=== PATIENT | female | born 1975 | race Caucasian/White ===

== ENCOUNTER → 2023-03-08 | Outpatient (CLI) | payer BC ==
--- NOTE | 2023-03-11 08:03 | MM ---
Reason for Exam: Screening (asymptomatic). Last mammogram was performed 1 year(s) and 3 month(s) ago. Patient History: Menarche at age 14. Patient has no children. Last menstrual period: 12/31/2022 Risk Values: Liberty 5 year model risk: 0.9%. NCI Lifetime model risk: 10.5%. Prior Study Comparison: 06/27/2020 Bilateral Screening Mammogram, [facility]. 11/25/2021 Bilateral Screening Mammogram, [facility]. Tissue Density: The breast tissue is heterogeneously dense. This may lower the sensitivity of mammography. Findings: Analyzed By CAD. Asymmetric density upper right breast 10 cm from the nipple. Additional views are recommended. Overall Assessment: Incomplete: need additional imaging evaluation, BI-RAD 0 Management: Diagnostic Mammogram of the right breast. . Patient should continue monthly self-breast exams. A clinical breast exam by your physician is recommended on an annual basis. This exam should not preclude additional follow-up of suspicious palpable abnormalities. Note on Liberty scores and lifetime risk: 1. A Liberty score greater than 3% is considered moderate risk. If this is the case, consider specialist referral to assess eligibility for a risk reducing agent. 2. If overall lifetime risk for the development of breast cancer is 20% or higher, the patient may qualify for future screening with alternating mammogram and breast MRI. Electronically signed and approved by: Carmine Dominique M.D. Radiologis
== END | disposition home or self-care (01) ==
LOC: RADMAMWWP 07:07
PROVIDERS: ATTEND Obstetrics & Gynecology
DX: Z12.31 Encounter for screening mammogram for malignant neoplasm of breast (principal)
CPT/HCPCS: 77063; 77067

== ENCOUNTER → 2023-03-17 | Outpatient (CLI) | payer BC ==
--- NOTE | 2023-03-17 16:18 | MM ---
Reason for Exam: Additional evaluation requested from abnormal screening. Last screening mammogram was performed less than 1 month ago. Patient History: Menarche at age 14. Patient has no children. 2017, Incisional Biopsy on the Right side. Risk Values: Liberty 5 year model risk: 1.4%. NCI Lifetime model risk: 12.5%. Prior Study Comparison: 06/27/2020 Bilateral Screening Mammogram, [facility]. 11/25/2021 Bilateral Screening Mammogram, [facility]. 03/08/2023 Bilateral MG 3D screening mammo w/cad, [facility]. Tissue Density: Right: The breast tissue is heterogeneously dense. This may lower the sensitivity of mammography. Analyzed By CAD. Overall Assessment: Probably benign, BI-RAD 3 Management: Diagnostic Mammogram of the right breast in 3 months. Electronically signed and approved by: Dago Tay D.O. Radiologis
== END | disposition home or self-care (01) ==
LOC: RADMAMWWP 13:34
PROVIDERS: ATTEND Obstetrics & Gynecology
DX: R92.8 Other abnormal and inconclusive findings on diagnostic imaging of breast (principal)
CPT/HCPCS: 77061; 77065

== ENCOUNTER → 2024-12-22 | Outpatient (CLI) | payer BC ==
--- NOTE | 2024-12-22 08:06 | MM ---
Reason for Exam: Screening (asymptomatic). Last mammogram was performed 1 year(s) and 9 month(s) ago. Patient History: Menarche at age 14. Patient has no children. 2017, Incisional Biopsy on the Right side. Risk Values: Liberty 5 year model risk: 1.3%. NCI Lifetime model risk: 12.1%. Prior Study Comparison: 03/08/2023 Bilateral MG 3D screening mammo w/cad, [facility]. 03/17/2023 Right MG 3D work up w/cad RT, [facility]. 06/21/2023 Right MG 3D diag mammo w/cad RT, [facility]. Tissue Density: The breasts are heterogeneously dense, which may obscure small masses. Findings: Analyzed By CAD. Loosely grouped calcifications in the right breast and upper outer quadrant left breast.. Recommend magnification views. Overall Assessment: Incomplete: need additional imaging evaluation, BI-RAD 0 Management: Special View Mammogram of both breasts. . Patient should continue monthly self-breast exams. A clinical breast exam by your physician is recommended on an annual basis. This exam should not preclude additional follow-up of suspicious palpable abnormalities. Note on Liberty scores and lifetime risk: 1. A Liberty score greater than 3% is considered moderate risk. If this is the case, consider specialist referral to assess eligibility for a risk reducing agent. 2. If overall lifetime risk for the development of breast cancer is 20% or higher, the patient may qualify for future screening with alternating mammogram and breast MRI. [facility], , 12/22/2024 8:03 AM. Electronically signed and approved by: Hardik Torrez M.D. Radiologis
== END | disposition home or self-care (01) ==
LOC: RADMAMWWP 07:20
PROVIDERS: ATTEND Family Medicine
DX: Z12.31 Encounter for screening mammogram for malignant neoplasm of breast (principal); R92.333 Mammographic heterogeneous density, bilateral breasts
CPT/HCPCS: 77063; 77067

== ENCOUNTER → 2025-01-03 | Outpatient (CLI) | payer BC ==
--- NOTE | 2025-01-03 08:21 | MM ---
Reason for Exam: Follow-up at short interval from prior study. Last screening mammogram was performed less than 1 month ago. Patient History: Menarche at age 14. Patient has no children. 2017, Incisional Biopsy on the Right side. Risk Values: Liberty 5 year model risk: 1.3%. NCI Lifetime model risk: 12.1%. Prior Study Comparison: 06/21/2023 Right MG 3D diag mammo w/cad RT, [facility]. 12/22/2024 Bilateral MG 3D screening mammo w/cad, [facility]. Tissue Density: The breasts are heterogeneously dense, which may obscure small masses. Findings: Analyzed By CAD. On the right, grouped amorphous calcifications upper inner quadrant at a middle depth not clearly seen previously. Upon further review, these are separate from the initially marked more posterior central calcifications on the screening MLO view which appear to be chronic. Tissue sampling recommended. On the left, upper outer quadrant punctate grouped calcifications at a middle depth on magnification views. There are some adjacent regional punctate calcifications as well. A benign etiology is favored. 6 month follow-up recommended. Overall Assessment: Suspicious, BI-RAD 4 Management: Stereotactic Core Biopsy of the right breast. Diagnostic Mammogram of the left breast in 6 months. Results were given to the patient verbally at the time of exam. [facility], , 01/03/2025 8:18 AM. Electronically signed and approved by: Janeen Solares M.D. Radiologist
== END | disposition home or self-care (01) ==
LOC: RADMAMWWP 07:30
PROVIDERS: ATTEND Family Medicine
DX: R92.8 Other abnormal and inconclusive findings on diagnostic imaging of breast (principal); R92.333 Mammographic heterogeneous density, bilateral breasts; R92.1 Mammographic calcification found on diagnostic imaging of breast
CPT/HCPCS: 77062; 77066

== ENCOUNTER → 2025-01-15 | Day surgery (SDC) | payer BC ==
[~2025-01-15] MED LIST: ALPRAZolam 0.25 MG TAB PO PRN
[2025-01-15] MEDS: ALPRAZolam 0.5 MG TAB PO PRN (07:38)
[2025-01-15 08:53] VITALS: BP 117/82; PULSE 80; RESP 14; TEMP 98.1
--- NOTE | 2025-01-17 13:02 | MM ---
Risk Values: Liberty 5 year model risk: 1.3%. NCI Lifetime model risk: 12.1%. Prior Study Comparison: 06/21/2023 Right MG 3D diag mammo w/cad RT, [facility]. 12/22/2024 Bilateral MG 3D screening mammo w/cad, [facility]. 01/03/2025 Bilateral MG 3D work up w/cad [facility], [facility]. Pathology Description: Marker Left Behind. Specimen Radiograph. Approach: Medial to Lateral Needle Type: Eviva Cores: 9 Skin Nicks: 1 Gauge: 9 The calcifications in question within the right breast were targeted by the undersigned. Procedure was performed by the undersigned. Informed consent was obtained and all of the patients questions were answered. The standard sterile technique was utilized and appropriate local anesthesia was obtained with 1% licocaine. Mammotome probe was advanced and multiple core samples were obtained and sent to pathology for interpretation. Microclip marker was deployed at the site of biopsy. Patient was transferred to mammography suite for post procedure mammogram. Post procedural mammogram demonstrates appropriate deployment of radiopaque clip marker. The patient tolerated the procedure well and left the department in stable condition. Pathology results are pending. Impression: Successful stereotactic core biopsy right breast. Pathology Results: Result: Benign, Fibrocystic change. Pathology and radiology were reviewed. Findings are concordant. RIGHT BREAST, STEREOTACTIC CORE BIOPSY: Fibrocystic change with sclerosing adenosis, columnar cell change, focal apocrine metaplasia and microcalcification. Negative for malignancy. Overall Assessment: Benign Management: Diagnostic Mammogram of the right breast in 6 months. Electronically signed and approved by: Carmine Dominique M.D. Radiologis
== END ==
LOC: RADMAMWWP 07:15
PROVIDERS: ATTEND Family Medicine
DX: N60.21 Fibroadenosis of right breast (principal); N60.81 Other benign mammary dysplasias of right breast; R92.8 Other abnormal and inconclusive findings on diagnostic imaging of breast
CPT/HCPCS: 88305; 19081; A4648; J2003